=== PATIENT | female | born 1995 | race Hispanic/Latino ===

== ENCOUNTER 2016-11-17 09:26 | Emergency (ER) | payer MEDICAID ==
[2016-11-17 10:33] LABS: Basophils % (Auto) 0.1 % (0.0-1.8); Eosinophils % (Auto) 0.4 % (0.0-4.3); Hematocrit 35.8 % (30.3-42.9); Hemoglobin 12.5 gm/dl (10.1-14.3); Mean Corpuscular HGB Conc 35 % (30-34); Mean Corpuscular Hemoglobin 29 pg (28-32); Mean Corpuscular Volume 84 fl (79-97); Platelet Count 243 K/mm3 (140-440); Red Blood Count 4.25 M/mm3 (3.65-5.03); Red Cell Distribution Width 14.1 % (13.2-15.2); White Blood Count 7.5 K/mm3 (4.5-11.0)
[2016-11-17 10:41] LABS: Anion Gap 16 mmol/L; BUN/Creatinine Ratio 13; Blood Urea Nitrogen 5 mg/dL (7-17); Calcium 8.8 mg/dL (8.4-10.2); Carbon Dioxide 24 mmol/L (22-30); Chloride 102.5 mmol/L (98-107); Glucose 95 mg/dL (65-100); Potassium 4.3 mmol/L (3.6-5.0); Sodium 138 mmol/L (137-145)
--- NOTE | 2016-11-17 14:11 | Emergency Department Report ---
ED Chest Pain HPI - General Chief Complaint: Chest Pain Stated Complaint: CHEST PAIN SOB, Time Seen by Provider: 11/17/16 13:59 Source: patient Mode of arrival: Ambulatory Limitations: No Limitations - History of Present Illness Initial Comments: Patient is 20 years old female presents with twins presented with chest pain substernal and does not radiate described it as aching. Denied any shortness of breath stated that the pain increases with respiration and movement. She reported that she picked up a kid 2 days ago. MD Complaint: chest pain -: days(s) Pain Location: substernal Severity scale (0 -10): 3 Quality: aching, dull Consistency: constant Improves With: remaining still Worsens With: movement - Related Data Home Medications Medication Instructions Recorded Confirmed Last Taken Ferrous Sulfate 1 tab PO DAILY 11/10/14 11/10/14 11/10/14 metFORMIN [Glucophage] 850 mg PO BID 11/10/14 11/10/14 11/10/14 Previous Rx's Medication Instructions Recorded Last Taken Type Ibuprofen [Motrin] 800 mg PO Q8HR PRN #60 tablet 11/10/14 Unknown Rx traMADol [Ultram] 50 mg PO Q6HR PRN #20 tablet 11/10/14 Unknown Rx Allergies Allergy/AdvReac Type Severity Reaction Status Date / Time No Known Allergies Allergy Unverified 11/17/16 09:37 Heart Score - HEART Score History: Slightly suspicious EKG: Normal Age: < 45 Risk factors: No known risk factors Troponin: < normal limit HEART Score: 0 - Critical Actions Critical Actions: 0-3 pts:0.9-1.7%risk of adverse cardiac event.Candidate for discharge ED Review of Systems ROS: Stated complaint: CHEST PAIN SOB, Other details as noted in HPI Comment: All other systems reviewed and negative Constitutional: denies: chills, fever Respiratory: denies: cough, orthopnea, shortness of breath, SOB with exertion, SOB at rest, wheezing Cardiovascular: chest pain. denies: palpitations, dyspnea on exertion, edema Gastrointestinal: denies: abdominal pain, nausea, vomiting, constipation, hematemesis, melena, hematochezia Genitourinary: denies: urgency, dysuria, frequency, hematuria Musculoskeletal: denies: back pain Neurological: denies: headache, numbness, paresthesias ED Past Medical Hx - Past Medical History Previous Medical History?: No Additional medical history: Irregular menses - Surgical History Past Surgical History?: No - Social History Smoking Status: Never Smoker Substance Use Type: None - Medications Home Medications: Home Medications Medication Instructions Recorded Confirmed Last Taken Type Ferrous Sulfate 1 tab PO DAILY 11/10/14 11/10/14 11/10/14 History Ibuprofen [Motrin] 800 mg PO Q8HR PRN #60 tablet 11/10/14 Unknown Rx metFORMIN [Glucophage] 850 mg PO BID 11/10/14 11/10/14 11/10/14 History traMADol [Ultram] 50 mg PO Q6HR PRN #20 tablet 11/10/14 Unknown Rx ED Physical Exam - General Limitations: No Limitations General appearance: alert, in no apparent distress - Head Head exam: Present: atraumatic, normocephalic - Eye Eye exam: Present: normal appearance, PERRL - ENT ENT exam: Present: normal exam, normal orophraynx, mucous membranes moist - Neck Neck exam: Present: normal inspection, full ROM. Absent: tenderness, meningismus, lymphadenopathy - Respiratory Respiratory exam: Present: normal lung sounds bilaterally, chest wall tenderness (reproducible chest pain). Absent: respiratory distress, wheezes, rales, rhonchi, stridor, accessory muscle use, decreased breath sounds, prolonged expiratory - Cardiovascular Cardiovascular Exam: Present: regular rate, normal rhythm, normal heart sounds - GI/Abdominal GI/Abdominal exam: Present: soft, normal bowel sounds. Absent: distended, tenderness, guarding, rebound, rigid, hyperactive bowel sounds, hypoactive bowel sounds, organomegaly, mass, bruit, pulsatile mass, hernia - Extremities Exam Extremities exam: Present: normal inspection, normal capillary refill. Absent: tenderness, pedal edema, joint swelling, calf tenderness - Back Exam Back exam: Present: normal inspection. Absent: CVA tenderness (R), CVA tenderness (L) - Neurological Exam Neurological exam: Present: alert, oriented X3, CN II-XII intact, normal gait - Skin Skin exam: Present: warm, intact, normal color ED Course Vital Signs 11/17/16 09:34 Temperature 98.2 F Pulse Rate 90 Respiratory 16 Rate Blood Pressure 151/97 O2 Sat by Pulse 97 Oximetry - Reevaluation(s) Reevaluation #1: 11/17/16 14:11 Patient is sitting in the bed in no acute distress talking to her mother denying any shortness of breath or chest pain at this moment ED Medical Decision Making - Lab Data Result diagrams: 11/17/16 10:03 11/17/16 10:03 - EKG Data -: EKG Interpreted by Me EKG shows normal: sinus rhythm - EKG Data Interpretation: no acute changes - Medical Decision Making Patient blood work including troponin came back negative EKG unremarkable: Chest pain is reproducible with tenderness substernal. I believe this is costochondritis patient is so I advised Tylenol for pain and try avoid anti-inflammatory medicine. Critical care attestation.: If time is entered above; I have spent that time in minutes in the direct care of this critically ill patient, excluding procedure time. ED Disposition Clinical Impression: Chest pain, Costochondritis, acute Disposition: DC-01 TO HOME OR SELFCARE Is pt being admited?: No Condition: Stable Instructions: Chest Pain (ED), Costochondritis (ED) Referrals: PRIMARY CARE, [Primary Care Provider] - 3-5 Days
[2016-11-17 14:16] VITALS: BP 114/71
== END 2016-11-17 14:26 | disposition home or self-care (01) ==
LOC: ED 09:26
DX: M94.0 Chondrocostal junction syndrome [Tietze] (principal); R07.2 Precordial pain
CPT/HCPCS: 36415; 80048; 84484; 85025; 93005; 93010

== ENCOUNTER 2017-03-30 18:12 | Outpatient (CLI) | payer MEDICAID ==
[2017-03-30] MEDS ORDERED: LACTATED RINGERS 1,000 ML IV ONE ×2 (19:18→20:00)
[2017-03-30 20:13] LABS: Bacteria,Urine 1+ /HPF (Negative); Bilirubin,Urine NEG (Negative); Blood,Urine NEG (Negative); Calcium Oxalate Crystals,Urine 2+; Color,Urine Yellow (Yellow); Mucus,Urine FEW /HPF; Nitrite,Urine NEG (Negative)
[2017-03-30 20:17] VITALS: BP 112/67
== END 2017-03-30 20:34 | disposition home or self-care (01) ==
LOC: TRG 18:12
PROVIDERS: ATTEND Obstetrics & Gynecology
DX: O47.03 False labor before 37 completed weeks of gestation, third trimester (principal); Z3A.33 33 weeks gestation of pregnancy
CPT/HCPCS: 59025; 81001; 96360; J7120

== ENCOUNTER 2017-05-11 05:37 | Inpatient (IN) | payer MEDICAID ==
--- NOTE | 2017-05-10 16:34 | History and Physical Report ---
History of Present Illness Date of examination: 05/08/17 History of present illness: Patient admitted for repeat section. Patient informed the risks of the surgery include bleeding possibly bleeding heavy enough to require blood transfusion, infection possible damage to bowel bladder ureter. Patient understands that due to her previous surgery she is an increased risks of adjacent organ damage. Patient's questions answered. Patient understands and desires to proceed. Menstrual History Regularity: regular Menses every: 28 days Duration: 6 LMP: 05/14/2016 LMP reliability: definite LMP character: normal test type: urine test Date: 10/03/2016 BC at conception: none EDC Calculations EDC Confirmation: 05/24/2017 Past History : 2 Term Births: 0 Premature Births: 0 Living Children: 0 Para: 0 Mult. Births: 0 Prev : 0 Aborta: 1 Elect. Ab: 0 Spont. Ab: 1 Ectopics: 0 # 1 Delivery date: 08/10/2016 Weeks Gestation: 6-8 Delivery type: SAB Delivery location: [facility] [place] Comments: No D&C Risk Factors: Smoked Tobacco Use: Never smoker Smokeless Tobacco Use: Never Passive smoke exposure: no Drug use: no Alcohol use: no Dietary Counseling: pn yes Past Medical History: Negative Past Medical History Past Surgical History: Negative Past Surgical History Family History Summary: Other family member - Has No Family History of Ovarvian Cancer - Entered On: Other family member - Has No Family History of Colon Cancer - Entered On: 2016 Other family member - Has Family History of Hypertension - Entered On: 10/03/2016 Other family member - Has Family History of Hyperlipidemia - Entered On: 2016 Other family member - Has Family History of Diabetes - Entered On: 10/03/2016 Other family member - Has Family History Breast Cancer - Entered On: 10/03/2016 Social History: Patient is single Smoking History: Patient has never smoked. Past Medical History Surgery (Non-user experience manager): Negative Past Surgical History Abnormal PAP: negative Uterine Anomaly: negative Social Hx: Patient is single Smoking History: Patient has never smoked. Infection History Hx of STD: none Personal hx. of genital herpes: no Genetic History Congenital Heart Defect: Mom: no Dad: no Анна Disease: Mom: no Dad: no Thalassemia Mom: no Dad: no Neural Tube Defect Mom: no Dad: no Down's Syndrome Mom: no Dad: yes Comments: sibling Ray-Sachs Mom: no Dad: no Sickle Cell Disease/Trait Mom: yes Dad: no Comments: niece with trait Hemophilia Mom: no Dad: no Muscular Dystrophy Mom: no Dad: no Cystic Fibrosis Mom: no Dad: no [place] Chorea Mom: no Dad: no Mental Retardation Mom: no Dad: no Fragile X Mom: no Dad: no Other Genetic/Chromosomal Disorder Mom: no Dad: no Child w/other defect Mom: no Dad: no Enviromental Exposures Xray Exposure: no Medication, drug, or alcohol use since LMP: no Chemical/Other Exposure: no Exposure to Cat Liter: no Current Allergies: No known allergies Past History Past Medical History: other (See HPI) Past Surgical History: other (See HPI) [employer] OFFICIAL History: other (See HPI) Family/Genetic History: other (See HPI) Social history: single, full code, other (See HPI) - Obstetrical History : 2 Para: 0 Hx # Term Pregnancies: 0 Number of Pregnancies: 0 Spontaneous Abortions: 1 Induced : 0 Number of Living Children: 0 Medications and Allergies Allergies Allergy/AdvReac Type Severity Reaction Status Date / Time No Known Allergies Allergy Unverified 11/17/16 09:37 Review of Systems Constitutional: other (See HPI) - Physical Exam Breasts: Positive: deferred Cardiovascular: Regular rate Lungs: Positive: Normal air movement Abdomen: Positive: normal appearance, soft, other (Obese) Genitourinary (Female): Positive: normal external genitalia Vagina: Positive: normal moisture Uterus: Positive: enlarged Anus/Rectum: Positive: normal perianal skin Results Result Diagrams: 05/11/17 06:00 All other labs normal. Assessment and Plan - Patient Problems (1) Breech presentation Status: Acute Qualifiers: Fetus number: fetus 1 of multiple gestation Qualified Code(s): O32.1XX1 - Maternal care for breech presentation, fetus 1 Plan to address problem: Patient is well aware of the indications for operative deliver. Discuss the risks of the surgery including infection, bleeding possibly heavy enough to require a blood transfusion, possible damage to bowel, bladder or ureter. Her questions were answered. Patient understands and desires to proceed (2) Twin gestation in third trimester Status: Acute Qualifiers: Multiple gestation type: dichorionic and diamniotic Qualified Code(s): O30.043 - Twin , dichorionic/diamniotic, third trimester (3) 38 weeks gestation of Status: Acute (4) Adult BMI 50.0-59.9 kg/sq m Status: Chronic
[~2017-05-11 05:37] MED LIST: PITOCin/NS 20 UNIT/1000ML DRIP 20 UNITS/1,000 ML BAG IV SCH
[2017-05-11] MEDS ORDERED: LACTATED RINGERS 1,000 ML ONE (06:15)
[2017-05-11 06:26] LABS: Basophils % (Auto) 0.3 % (0.0-1.8); Eosinophils % (Auto) 0.3 % (0.0-4.3); Hematocrit 39.1 % (30.3-42.9); Hemoglobin 13.4 gm/dl (10.1-14.3); Lymphocytes # (Auto) 2.4 K/mm3 (1.2-5.4); Lymphocytes % (Auto) 22.8 % (13.4-35.0); Mean Corpuscular HGB Conc 34 % (30-34); Mean Corpuscular Hemoglobin 30 pg (28-32); Mean Corpuscular Volume 87 fl (79-97); Monocytes # (Auto) 0.9 K/mm3 (0.0-0.8); Monocytes % (Auto) 8.9 % (0.0-7.3); Platelet Count 228 K/mm3 (140-440); Red Blood Count 4.48 M/mm3 (3.65-5.03); Red Cell Distribution Width 14.7 % (13.2-15.2)
[2017-05-11] MEDS: LACTATED RINGERS 1,000 ML IV SCH ×2 (06:49→06:50)
[2017-05-11] MEDS ORDERED: REGLAN IV ONE (07:00)
[2017-05-11] MEDS ORDERED: PEPCID IV ONE (07:00)
[2017-05-11] MEDS ORDERED: BICITRA PO ONE (07:00)
[2017-05-11] MEDS ORDERED: ANCEF/STERILE WATER 2 GM/20 ML 2 GM/20 ML SYRINGE IV NR (07:00)
--- NOTE | 2017-05-11 07:16 | Anesthesia Consultation ---
Anesthesia Consult and Med Hx Date of service: 05/11/17 - Airway Anesthetic Teeth Evaluation: Good ROM Head & Neck: Adequate Mental/Hyoid Distance: Adequate Mallampati Class: Class II Intubation Access Assessment: Probably Good - Pre-Operative Health Status ASA Pre-Surgery Classification: ASA3 Proposed Anesthetic Plan: Epidural, Spinal - Pulmonary Hx Asthma: No COPD: No Hx Pneumonia: No - Cardiovascular System Hx Hypertension: No - Central Nervous System Hx Seizures: No Hx Psychiatric Problems: No - Endocrine Hx Renal Disease: No Hx End Stage Renal Disease: No Hx Hypothyroidism: No Hx Hyperthyroidism: No - Hematic Hx Anemia: No Hx Sickle Cell Disease: No - Other Systems Hx Alcohol Use: No Hx Obesity: Yes (BMI 59.2)
--- NOTE | 2017-05-11 07:17 | Anesthesia Day of Surgery ---
Anesthesia Day of Surgery - Day of Surgery Patient Examined: Yes Patient H&P Reviewed: Yes Patient is NPO: Yes
[2017-05-11] MEDS ORDERED: WATER FOR IRRIG STERILE IR ONE (07:51)
[2017-05-11] MEDS ORDERED: NACL 0.9% IR ONE (07:51)
[2017-05-11] MEDS ORDERED: NEO SYNEPHRINE/NS Syringe(OR USE) IV ONE ×2 (07:53→08:01)
[2017-05-11] MEDS ORDERED: ZOFRAN IV PRN (08:00)
[2017-05-11] MEDS ORDERED: NARCAN 0.4 MG/1 ML IV PRN (08:00)
[2017-05-11] MEDS ORDERED: TORADOL IV PRN (08:00)
[2017-05-11] MEDS ORDERED: PHENERGAN PR PRN (08:00)
[2017-05-11] MEDS ORDERED: SODIUM CHLORIDE FLUSH SYRINGE 10 ML IV PRN (08:00)
[2017-05-11] MEDS ORDERED: PHENERGAN PO PRN (08:00)
[2017-05-11] MEDS ORDERED: BENADRYL IV PRN (08:00)
[2017-05-11] MEDS ORDERED: DILAUDID IV PRN (08:00)
[2017-05-11] MEDS ORDERED: ASTRAMORPH PF 10MG/10ML ONE (08:21)
[2017-05-11] MEDS ORDERED: ZOFRAN ONE (08:31)
--- NOTE | 2017-05-11 09:20 | Operative Report ---
Operative Report Operative Report: Date of procedure: 05/11/2017 Pre-operative diagnosis: Intrauterine at 38 weeks 1 day twin gestation twin A breech presentation. Morbid obesity Post-operative diagnosis: Same Procedure name(s): Primary low transverse section Surgeon: Kobe Landrum MD Mainframe Software Developer: Ellie Bridges, certified nurse manager paid Anesthesia: Spinal EBL: 900 mL Complications: None Findings: Normal uterus tubes and ovaries, twin A infant breech presentation female weight 6 lbs. 9 oz. Apgars 8 at 1 minute and 9 at 5 minutes, twin B male infant weight 7 lbs. 15 oz. Apgars 8 at 1 minute and 9 at 5 minutes Specimen(s): Placenta Procedure: The patient was brought to the operating room. A spinal was placed without any complications. She was then placed in left lateral tilt. Prepped and draped in the usual sterile manner. After testing for adequate anesthesia level, a Pfannenstiel incision was made. This incision was taken down to the fascia. The fascia was then nicked in the midline. This incision was extended out laterally with Edgar scissors. The fascia was then sharply and bluntly from the underlying rectus muscles. The rectus muscles were bluntly and sharply . The peritoneum was then entered with the slurry plant operator's fingers. This incision was spread vertically with care not to damage the bladder below. The bladder flap was then formed sharply and bluntly with Metzenbaum scissors. Bladder blade was placed. A transverse incision was made in lower uterine segment. This incision was extended laterally with the operators fingers. The amniotic sac was then entered bluntly with the slurry plant operator' s fingers. The first infant was delivered by delivered in the breech first flexing and extending the lower extremities followed by raising the breech then sweeping flexing and extending the upper extremities and after coming head was then delivered safely. Cord was double clamped and cut. The infant was bulb suctioned on the mother's abdomen. The infant was then passed to the nursery personnel who were in attendance. The above scores were given by the nursery personnel. Cord blood was obtained. The amniotic sac of the twin B was ruptured. Twin B was delivered vertex position. Bulb suction on the mother 's abdomen cord double clamped and cut. The infant was then passed to the nursery personnel were in attendance. The placenta was then bluntly removed. The uterus was then externalized and wiped clean the remaining products. The uterine incision was closed in layers. The first incision was closed in a locking manner using 0 Vicryl. This was followed by imbricating stitch also with 0 Vicryl. This closure was hemostatic. The bladder flap was copiously irrigated and found to be hemostatic. The pelvis was copiously irrigated and found to be hemostatic. The uterus was then placed back to the patient's abdomen. The retractors were removed. The rectus muscles were inspected and found to be hemostatic. The fascia was then closed in a running manner using 0 Vicryl. This incision was hemostatic irrigation Bovie. The skin was reapproximated with 4-0 Vicryl subcuticularly. The patient tolerated procedure well. Her urine was clear. The was admitted to the well baby nursery. The patient was accompanied to recovery room in good condition. Instrument count correct 3.
[2017-05-11] MEDS ORDERED: PITOCin/NS 20 UNIT/1000ML DRIP 20 UNITS/1,000 ML BAG IV SCH (10:00)
[2017-05-11] MEDS ORDERED: TUCKS PAD TP PRN (10:00)
[2017-05-11] MEDS ORDERED: LANSINOH TP PRN (10:00)
[2017-05-11] MEDS ORDERED: NORCO 5/325 PO PRN (10:00)
[2017-05-11] MEDS ORDERED: NUBAIN IV PRN (11:58)
[2017-05-11] MEDS ORDERED: ANCEF/NS 1 GM/50 ML 1 GM/50 ML BAG IV SCH (16:30)
[2017-05-11] MEDS: TORADOL IV SCH ×2 (16:45→22:04)
[2017-05-11] MEDS: ceFAZolin 1 GM in NACL 0.9% 20 ML IV SCH (17:15)
[2017-05-11] MEDS: D5LR 1,000 ML IV SCH (17:50)
[2017-05-11 21:16] LABS: Hematocrit 33.5 % (30.3-42.9); Hemoglobin 11.2 gm/dl (10.1-14.3)
[2017-05-11] MEDS ORDERED: MILK OF MAGNESIA PO PRN (22:00)
[2017-05-12] MEDS: ceFAZolin 1 GM in NACL 0.9% 20 ML IV SCH (00:32)
[2017-05-12] MEDS: D5LR 1,000 ML IV SCH (01:58)
--- NOTE | 2017-05-12 08:37 | Progress Note ---
Assessment and Plan patient doing well, no complaints. Sitting up caring for infants. Radha carlisle , H&H 11.2/33.5, VSSAF. Continue current postop pathway. - Patient Problems (1) delivery delivered Current Visit: Yes Status: Acute Subjective - Subjective Date of service: 05/12/17 Principal diagnosis: postop day #1 s/p primary c/s Patient reports: appetite normal, voiding normally, pain well controlled, ambulating normally, no dizzy ambulation, no flatus, no nauseated : doing well, bottle feeding Objective - Vital Signs Latest vital signs: Vital Signs Temp Pulse Resp BP BP Pulse Ox 05/12/17 04:35 98.4 F 76 18 126/68 05/12/17 00:00 98.3 F 83 18 113/73 05/11/17 21:25 98.0 F 89 18 118/63 05/11/17 16:03 97.8 F 72 16 104/53 95 05/11/17 09:52 70 18 111/67 96 05/11/17 09:37 65 18 109/62 96 05/11/17 09:22 75 17 101/61 96 05/11/17 09:07 74 18 114/64 96 05/11/17 09:02 61 17 105/61 98 05/11/17 08:57 63 14 117/67 98 05/11/17 08:52 97.7 F 71 16 99/64 98 Intake and Output 05/11/17 05/12/17 05/12/17 23:59 07:59 15:59 Intake Total 360 1000 Output Total 800 Balance -440 1000 Intake: IV 1000 D5lr 1,000 ml @ 125 mls/ 1000 hr IV DIRECT JESSIKA Rx#: [id number] Oral 360 Output: Urine 800 Indwelling Catheter 800 Other: Total, Intake Amount 240 Total, Output Amount 600 - Exam Breasts: Present: normal Cardiovascular: Present: Regular rate Lungs: Present: Clear to auscultation, Normal air movement Abdomen: Present: normal appearance, soft Vulva: both: normal Uterus: Present: normal, firm, fundal height at umbilicus Extremities: Present: normal Deep Tendon Reflex Grade: Normal +2 Incision: Present: normal, dry, dressed
[2017-05-12] MEDS: PRENATAL VITAMIN PO SCH (12:02)
[2017-05-12] MEDS: FEOSOL PO SCH (12:02)
[2017-05-12] MEDS: MOTRIN PO PRN ×2 (12:03→18:21)
[2017-05-13] MEDS: MOTRIN PO PRN ×2 (01:44→10:31)
[2017-05-13] MEDS ORDERED: BOOSTRIX IM ONE (06:00)
[2017-05-13] MEDS: FEOSOL PO SCH (10:30)
[2017-05-13] MEDS: PRENATAL VITAMIN PO SCH (10:30)
[2017-05-13 10:33] VITALS: BP 117/68
--- NOTE | 2017-05-13 11:25 | Discharge Summary ---
Providers - Providers Date of Admission: 05/11/17 05:37 Date of discharge: 05/13/17 Attending physician: MANUELA BO 05/11/17 09:16 Consult to Golf Course Mechanic [CONS] Routine Reason For Exam: Primary care physician: MANUELA BO Hospitalization Reason for admission: section, other (twin gestation baby A breech presentation) Delivery: Procedure: section Incision: normal, dry, intact Other procedures: none complications: none Discharge diagnosis: IUP at term delivered [place] baby: twins Hospital course: Patient was admitted and underwent above procedure without complications. Her post operative course was benign she was afebrile throughout. Patient postoperative day 1 hematocrit was in an acceptable range. Patient had no orthostatic symptoms. Patient was tolerating regular diet and voiding without difficulty at time of discharge. Patient incision was healing well without evidence of infection. Patient desires discharge today. Infants are doing well Condition at discharge: Good Disposition: DC-01 TO HOME OR SELFCARE - Discharge Diagnoses (1) Breech presentation Status: Acute Qualifiers: Fetus number: fetus 1 of multiple gestation Qualified Code(s): O32.1XX1 - Maternal care for breech presentation, fetus 1 (2) Twin gestation in third trimester Status: Acute Qualifiers: Multiple gestation type: dichorionic and diamniotic Qualified Code(s): O30.043 - Twin , dichorionic/diamniotic, third trimester (3) 38 weeks gestation of Status: Acute (4) Adult BMI 50.0-59.9 kg/sq m Status: Chronic Plan - Discharge Medications Prescriptions: Ferrous Sulfate [Feosol 325 MG tab] 325 mg PO BID #60 tablet Ibuprofen [Motrin 800 MG tab] 800 mg PO Q6H PRN #30 tablet PRN Reason: Pain oxyCODONE /ACETAMINOPHEN [Percocet 5/325 mg] 1 - 2 tab PO Q4H PRN #30 tablet PRN Reason: Pain, Moderate - Provider Discharge Summary Activity: routine, no sex for 6 weeks, no heavy lifting 4 weeks, no strenuous exercise Diet: routine Instructions: routine Additional instructions: [] Smoking cessation referral if applicable(refer to patient education folder for contact #) [] Refer to [facility]'s [facility] Booklet Call your doctor immediately for: * Fever > 100.5 * Heavy vaginal bleeding ( >1 pad per hour) * Severe persistent headache * Shortness of breath * Reddened, hot, painful area to leg or breast * Drainage or odor from incision. * Keep incision clean and dry at all times and follow doctor's instructions regarding bathing/showering Patient to keep scheduled postop visit. Patient call office to schedule ' s circumcision - Follow up plan Follow up: MANUELA BO MD [Primary Care Provider] - 7 Days
== END 2017-05-13 17:45 | disposition home or self-care (01) | DRG 765 ==
LOC: APU 05:37 → OB 10:56
PROVIDERS: ADMIT Obstetrics & Gynecology; ATTEND Obstetrics & Gynecology
PROC: 10D00Z1 Extraction of Products of Conception, Low, Open Approach (ICD-10-PCS; principal; 2017-05-11)
DX: O32.1XX1 Maternal care for breech presentation, fetus 1 (principal); Z68.43 Body mass index [BMI] 50.0-59.9, adult; Z3A.38 38 weeks gestation of pregnancy; Z37.2 Twins, both liveborn; E66.01 Morbid (severe) obesity due to excess calories; O99.214 Obesity complicating childbirth
CPT/HCPCS: 36415; 85014; 85018; 85025; 86592; 86850; 86900; 86901; 88307; 90471; 90715; J0690; J1885; J2274; J2300; J2370; J2405; J2590; J2765; J7120; J7121

== ENCOUNTER 2018-09-28 23:28 | Emergency (ER) | payer SELFPAY ==
[2018-09-29] MEDS ORDERED: IBUPROFEN PO ONE (02:22)
--- NOTE | 2018-09-29 02:28 | Emergency Department Report ---
ED ENT HPI - General Chief complaint: Earache Stated complaint: COTTON FROM Q-TIP IN LEFT EAR Time Seen by Provider: 09/29/18 02:04 Source: patient Mode of arrival: Ambulatory Limitations: No Limitations - History of Present Illness Initial comments: Patient is a 22-year-old white female who advises foreign body left ear states she lost a Q-tip ball in her left ear and removed it at home now with earache 08/22 there is no loss of hearing no tinnitus no fevers no chills no vertigo no dizziness no lightheadedness complaint: ear pain Onset/Timin -: hour(s) Location: L ear Severity: moderate Severity scale (0 -10): 5 Quality: aching Consistency: constant Improves with: none Worsens with: none Context- Ear: other (foreign body ) - Related Data Previous Rx's Medication Instructions Recorded Last Taken Type Ferrous Sulfate [Feosol 325 MG tab] 325 mg PO BID #60 tablet 05/11/17 Unknown Rx Ibuprofen [Motrin 800 MG tab] 800 mg PO Q6H PRN #30 tablet 05/11/17 Unknown Rx oxyCODONE /ACETAMINOPHEN [Percocet 1 - 2 tab PO Q4H PRN #30 tablet 05/11/17 Unknown Rx 5/325 mg] Ciprofloxacin HCl/Dexameth 4 drops OT BID 10 Days #7.5 ml 09/29/18 Unknown Rx [Ciprodex Otic Suspension] Ibuprofen [Motrin 800 MG tab] 800 mg PO Q8HR PRN #30 tablet 09/29/18 Unknown Rx Allergies Allergy/AdvReac Type Severity Reaction Status Date / Time No Known Allergies Allergy Unverified 11/17/16 09:37 ED Dental HPI - General Chief complaint: Earache Stated complaint: COTTON FROM Q-TIP IN LEFT EAR Time Seen by Provider: 09/29/18 02:04 Source: patient Mode of arrival: Ambulatory Limitations: No Limitations - Related Data Previous Rx's Medication Instructions Recorded Last Taken Type Ferrous Sulfate [Feosol 325 MG tab] 325 mg PO BID #60 tablet 05/11/17 Unknown Rx Ibuprofen [Motrin 800 MG tab] 800 mg PO Q6H PRN #30 tablet 05/11/17 Unknown Rx oxyCODONE /ACETAMINOPHEN [Percocet 1 - 2 tab PO Q4H PRN #30 tablet 05/11/17 Unknown Rx 5/325 mg] Ciprofloxacin HCl/Dexameth 4 drops OT BID 10 Days #7.5 ml 09/29/18 Unknown Rx [Ciprodex Otic Suspension] Ibuprofen [Motrin 800 MG tab] 800 mg PO Q8HR PRN #30 tablet 09/29/18 Unknown Rx Allergies Allergy/AdvReac Type Severity Reaction Status Date / Time No Known Allergies Allergy Unverified 11/17/16 09:37 ED Review of Systems ROS: Stated complaint: COTTON FROM Q-TIP IN LEFT EAR Other details as noted in HPI Constitutional: denies: chills, fever Eyes: denies: eye pain, eye discharge, vision change ENT: ear pain Respiratory: denies: cough, shortness of breath, wheezing Cardiovascular: denies: chest pain, palpitations Endocrine: no symptoms reported Gastrointestinal: denies: abdominal pain, nausea, diarrhea Genitourinary: denies: urgency, dysuria, discharge Musculoskeletal: denies: back pain, joint swelling, arthralgia Skin: denies: rash, lesions Neurological: denies: headache, weakness, paresthesias Psychiatric: denies: anxiety, depression Hematological/Lymphatic: denies: easy bleeding, easy bruising ED Past Medical Hx - Past Medical History Previous Medical History?: No Hx Hypertension: No Hx Congestive Heart Failure: No Hx Diabetes: No Hx Deep Vein Thrombosis: No Hx Renal Disease: No Hx Sickle Cell Disease: No Hx Seizures: No Hx Asthma: No Hx COPD: No Hx HIV: No Additional medical history: Irregular menses - Surgical History Past Surgical History?: No - Social History Smoking Status: Never Smoker Substance Use Type: None - Medications Home Medications: Home Medications Medication Instructions Recorded Confirmed Last Taken Type Ferrous Sulfate [Feosol 325 MG tab] 325 mg PO BID #60 tablet 05/11/17 Unknown Rx Ibuprofen [Motrin 800 MG tab] 800 mg PO Q6H PRN #30 tablet 05/11/17 Unknown Rx oxyCODONE /ACETAMINOPHEN [Percocet 1 - 2 tab PO Q4H PRN #30 tablet 05/11/17 Unknown Rx 5/325 mg] Ciprofloxacin HCl/Dexameth 4 drops OT BID 10 Days #7.5 ml 09/29/18 Unknown Rx [Ciprodex Otic Suspension] Ibuprofen [Motrin 800 MG tab] 800 mg PO Q8HR PRN #30 tablet 09/29/18 Unknown Rx ED Physical Exam - General Limitations: No Limitations General appearance: alert, in no apparent distress - Head Head exam: Present: atraumatic, normocephalic - Eye Eye exam: Present: normal appearance, PERRL, EOMI Pupils: Present: normal accommodation - ENT ENT exam: Present: normal orophraynx, mucous membranes moist - Expanded ENT Exam Expanded Ear exam: Present: normal external inspection TM/Canal exam: Erythema: Left TM, Canal Tenderness: Left TM Mouth exam: Present: normal external inspection Teeth exam: Present: normal inspection Throat exam: Positive: normal inspection - Neck Neck exam: Present: normal inspection, full ROM. Absent: tenderness, meningismus, lymphadenopathy, thyromegaly - Expanded Neck Exam Expanded Neck exam: Absent: tenderness, midline deformity, anterior neck swelling, thyroid mass, carotid bruit, tracheal deviation - Respiratory Respiratory exam: Present: normal lung sounds bilaterally, chest wall tenderne ss. Absent: respiratory distress, wheezes, stridor - Cardiovascular Cardiovascular Exam: Present: regular rate, normal rhythm. Absent: systolic murmur, diastolic murmur, rubs, gallop - GI/Abdominal GI/Abdominal exam: Present: soft, normal bowel sounds. Absent: distended, tenderness, bruit, hernia - Rectal Rectal exam: Present: deferred - Extremities Exam Extremities exam: Present: normal inspection, full ROM, normal capillary refill - Back Exam Back exam: Present: normal inspection, full ROM. Absent: tenderness, rash noted - Neurological Exam Neurological exam: Present: alert, oriented X3, normal gait - Psychiatric Psychiatric exam: Present: normal affect, normal mood - Skin Skin exam: Present: warm, dry, intact, normal color. Absent: rash ED Course Vital Signs 09/28/18 23:43 Temperature 98.7 F Pulse Rate 88 Respiratory 16 Rate Blood Pressure 121/76 O2 Sat by Pulse 97 Oximetry ED Medical Decision Making - Medical Decision Making this is otitis externa moderat canal swelling erythema no foreign body noted on exam plan, ciprodex, follow up with ENT return to emergency if symptoms worsen, pt verbalized agreement and understanding of same. dc'd to home in stable condition. Critical care attestation.: If time is entered above; I have spent that time in minutes in the direct care of this critically ill patient, excluding procedure time. ED Disposition Clinical Impression: Otitis externa Qualifiers: Otitis externa type: unspecified type Chronicity: acute Laterality: left Qualified Code(s): H60.502 - Unspecified acute noninfective otitis externa, left ear Disposition: DC- TO HOME OR SELFCARE Is pt being admited?: No Does the pt Need Aspirin: No Condition: Stable Instructions: Otitis Externa (ED) Prescriptions: Ciprofloxacin HCl/Dexameth [Ciprodex Otic Suspension] 4 drops OT BID 10 Days #7.5 ml Ibuprofen [Motrin 800 MG tab] 800 mg PO Q8HR PRN #30 tablet PRN Reason: pain Referrals: ZULEIKA PEMBERTON MD [Primary Care Provider] - 3-5 Days Forms: Work/School Release Form(ED) Time of Disposition: 02:36
[2018-09-29 04:24] VITALS: BP 118/78
== END 2018-09-29 04:30 | disposition home or self-care (01) ==
LOC: ED 23:28
DX: H60.92 Unspecified otitis externa, left ear (principal); Z79.899 Other long term (current) drug therapy
CPT/HCPCS: 99282